=== PATIENT | male | born 1955 | race Caucasian/White ===

== ENCOUNTER → 2022-08-13 | Outpatient (CLI) | payer MEDICARE, SELFPAY ==
--- NOTE | 2022-08-13 16:30 | LES_PTH ---
PATIENT: MONROE AGUAYO LOC: [facility] U#:[id number] AGE/SX: 66/M ROOM: RE08/13/[address]: Dr. Yon Stewart MD : [id number] BED: DIS: 08/13/2022 SPEC #: [id number] RECD: 08/13/22 18:13 STATUS: DAXA RERosy #: [id number] CONNIE: 08/13/22 16:[address]: Yon Stewart DEPT: SURGICAL PATHOLOGY RECD BY: Scarlet Middleton Tissues: Skin of eyelid, NOS Procedures: Surgery Specimen Level IV HEADER OPERATION: Left lower lid lesion PRE-OP DIAGNOSIS: Left lower lid lesion TISSUE SUBMITTED: Left lower lid lesion MICROSCOPIC DIAGNOSIS Left lower eyelid lesion, biopsy: Consistent with squamous papilloma. AM:yin 08/17/2022 MICROSCOPIC DESCRIPTION Slides are reviewed. GROSS DESCRIPTION Received in fixative is one container labeled with the patient's name and designated left lower eyelid. The specimen consists of a piece of brown skin measuring 0.4 x 0.4 x 0.3 cm. The specimen is inked and submitted entirely in one cassette. / SJ:rg 08/14/2022 TC:5 CPT: 40359
== END | disposition home or self-care (01) ==
PROVIDERS: Visit Provider Ophthalmology
DX: H02.9 Unspecified disorder of eyelid (principal)
CPT/HCPCS: 88305